=== PATIENT | female | born 1950 ===

== ENCOUNTER 2016-11-10 15:03 | Emergency (ER) | payer SELFPAY ==
[2016-11-10 15:33] VITALS: BP 119/84; PULSE 72; RESP 18; TEMP 98.1; O2SAT 98
--- NOTE | 2016-11-10 17:42 | C.PDOC ---
Time Seen by Provider: 11/10/16 16:43 Chief Complaint (Nursing): Eye Problem History Per: Patient, Family Onset/Duration Of Symptoms: Days (few) Current Symptoms Are (Timing): Still Present Injury To Eye?: No Severity: Moderate Associated Symptoms: Itching, Discharge From Eye Additional History Per: Prior Records Past Medical History Reviewed: Historical Data, Nursing Documentation, Vital Signs Vital Signs: Last Vital Signs Temp 98.1 F 11/10/16 15:31 Pulse 72 11/10/16 15:31 Resp 18 11/10/16 15:31 BP 119/84 11/10/16 15:31 Pulse Ox 98 11/10/16 15:31 - Medical History PMH: No Chronic Diseases Family History: States: Unknown Family Hx - Social History Hx Alcohol Use: No Hx Substance Use: No - Immunization History Hx Tetanus Toxoid Vaccination: No Hx Influenza Vaccination: No Hx Pneumococcal Vaccination: No Review Of Systems Except As Marked, All Systems Reviewed And Found Negative. Constitutional: Negative for: Fever, Weakness Eyes: Positive for: Eyelid Inflammation (?) ENT: Negative for: Nose Congestion Cardiovascular: Negative for: Chest Pain Respiratory: Negative for: Shortness of Breath Gastrointestinal: Negative for: Vomiting, Abdominal Pain Musculoskeletal: Negative for: Neck Pain Skin: Negative for: Rash Neurological: Negative for: Weakness, Numbness, Seizures, Altered Mental Status , Headache Physical Exam - Physical Exam Appears: Non-toxic, No Acute Distress Skin: Normal Color, Warm, Dry, No Rash Head: Atraumatic, Normacephalic Eye(s): bilateral: PERRL, EOMI, Other (mild periorbital edema) Neck: Normal ROM, Supple Lymphatic: No Adenopathy Extremity: Normal ROM Neurological/Psych: Oriented x3, Normal Motor, Normal Sensation ED Course And Treatment O2 Sat by Pulse Oximetry: 98 Pulse Ox Interpretation: Normal Disposition Counseled Patient/Family Regarding: Diagnosis, Need For Followup, Rx Given - Disposition Referrals: Troy Thomas MD [Staff Provider] - [facility] at [facility] [place] [Outside] Disposition: HOME/ ROUTINE Disposition Time: 17:42 Condition: STABLE Additional Instructions: Follow up with an Customer Service Specialist (eye doctor) this week for further evaluation and treatment. Return to the ER if you develop change in vision, fever, worsening of symptoms or if you have any other concerns. Prescriptions: Polymyxin/Trimethoprim Sulfate [Polytrim Ophth Soln] 1 drop OU Q3 #1 bottle Instructions: Conjunctivitis (ED) Forms: [employer] (French) Print Language: NAMIBIAN - Clinical Impression Clinical Impression: Irritation of both eyes
== END 2016-11-10 17:55 | disposition home or self-care (01) ==
LOC: C.ER 15:03
DX: H57.8 Other specified disorders of eye and adnexa (principal)